=== PATIENT | male | born 1965 | race Caucasian/White ===

== ENCOUNTER 2019-04-09 03:43 | Emergency (ER) | payer MEDICAID, OTHER ==
[~2019-04-09] VITALS: Ht 170.2 cm; Wt 117.9 kg
[2019-04-09] MEDS ORDERED: CALCIUM CHLOR(10%) 100MG/ML 10ML SYRINGE IV ONE (03:49)
[2019-04-09] MEDS ORDERED: SODIUM BICARBONATE 8.4% INJ 50ML SYRINGE IV ONE (03:49)
[2019-04-09] MEDS ORDERED: EPINEPHrine HCL 1 MG/10 ML SYRG IV ONE (03:49)
[2019-04-09] MEDS ORDERED: EPINEPHrine HCL 1 MG/10 ML SYRG ONE (04:02)
== END 2019-04-09 10:46 | disposition expired ==
LOC: EDBD 03:43 → ER 03:48
DX: I46.9 Cardiac arrest, cause unspecified (principal); E11.9 Type 2 diabetes mellitus without complications; I10 Essential (primary) hypertension
CPT/HCPCS: 31500; 92950; 99291; J0171